=== PATIENT | female | born 1955 | race Caucasian/White ===

== ENCOUNTER 2022-02-06 08:57 | Observation (INO) ==
[2022-02-06] MEDS ORDERED: DilTIAZem 50 MG/50 ML IV.SOLN IVC SCH ×3 (09:30→11:45)
[2022-02-06 09:42] LABS: Basophils % 0.2 %; Eosinophils # 0.2 K/mcL (0.0-0.6); Eosinophils % 3.3 %; Hematocrit 44.9 % (35.3-44.9); Hemoglobin 14.7 g/dL (11.5-15.4); Immature Granulocytes % 0.3 % (0-4); Lymphocytes # 2.1 K/mcL (0.6-4.6); Lymphocytes % 31.5 %; Mean Corpuscular HGB Conc 32.7 g/dL (31.6-35.5); Mean Corpuscular Hemoglobin 33.6 pg (28.0-33.3); Mean Corpuscular Volume 102.7 fL (83.0-100.0); Mean Platelet Volume 9.9 fL (9.4-12.4); Monocytes # 0.5 K/mcL (0.0-1.3); Neutrophils # 3.8 K/mcL (1.6-8.9); Platelet Count 190 K/mcL (140-400); Red Blood Count 4.37 M/mcL (3.82-4.97); Red Cell Distribution Width 12.6 % (11.5-14.5); Segmented Neutrophils % 56.7 %; White Blood Count 6.6 K/mcL (4.3-11.1)
[2022-02-06 09:54] LABS: INR 0.9; Prothrombin Time 10.4 Seconds (9.4-12.1)
[2022-02-06 09:57] LABS: Activated Partial Thrombo Time 32.5 Seconds (26.0-36.0)
[2022-02-06 09:58] LABS: BUN/Creatinine Ratio 24 (6-26); Blood Urea Nitrogen 21 mg/dL (8-23); Calcium 9.6 mg/dL (8.6-10.3); Carbon Dioxide 30 mEq/L (23-29); Chloride 103 mEq/L (98-107); Glucose 125 mg/dL (70-105); Osmolality,Calculated 296 (280-300); Sodium 141 mEq/L (136-145); Troponin I < 0.03 ng/mL (< 0.04); eGFR For African Americans > 60 (> 60); eGFR For Non-African Americans > 60 (> 60)
[2022-02-06 10:28] LABS: Magnesium 1.8 mg/dL (1.6-2.6)
[2022-02-06 10:44] LABS: Thyroid Stimulating Hormone 5.735 mcIU/mL (0.340-5.600)
[2022-02-06] MEDS ORDERED: Melatonin 3 MG TABLET PO PRN (11:42)
[2022-02-06] MEDS ORDERED: Naloxone 0.4 MG/ML INJ IVP PRN (11:42)
[2022-02-06] MEDS ORDERED: *HR* Heparin 5,000 UNIT/ML VIAL IVP PRN ×2 (11:45)
[2022-02-06] MEDS ORDERED: *HR* Heparin 5,000 UNIT/ML VIAL IVP ONE (11:45)
[2022-02-06] MEDS ORDERED: Perflutren Lipid Microsphere 1.3 ML in 0.9 % Sodium Chloride 8.7 ML IVP PRN (12:50)
[2022-02-06] MEDS: Heparin 25,000UNIT/250ML 1/2NS 25,000 UNIT/250 ML IV.SOLN IVC SCH (13:27)
[2022-02-06 14:31] LABS: Hematocrit 41.3 % (35.3-44.9); Hemoglobin 13.3 g/dL (11.5-15.4); Mean Corpuscular HGB Conc 32.2 g/dL (31.6-35.5); Mean Corpuscular Hemoglobin 32.8 pg (28.0-33.3); Mean Corpuscular Volume 101.7 fL (83.0-100.0); Mean Platelet Volume 10.2 fL (9.4-12.4); Platelet Count 173 K/mcL (140-400); Red Blood Count 4.06 M/mcL (3.82-4.97); Red Cell Distribution Width 12.8 % (11.5-14.5); White Blood Count 6.9 K/mcL (4.3-11.1)
[2022-02-06] MEDS: DilTIAZem CD (24hr) 120 MG CAP.ER.24H PO SCH (14:34)
[2022-02-06 15:43] LABS: Magnesium 1.7 mg/dL (1.6-2.6)
[2022-02-06] MEDS ORDERED: Losartan/HCTZ 50-12.5 TABLET PO SCH (18:00)
[2022-02-06] MEDS: Metoprolol XL (24 HR) Succ 25 MG TAB.ER.24H PO SCH (20:34)
[2022-02-07 05:04] LABS: Basophils % 0.2 %; Eosinophils # 0.2 K/mcL (0.0-0.6); Eosinophils % 2.7 %; Hematocrit 38.4 % (35.3-44.9); Hemoglobin 12.6 g/dL (11.5-15.4); Immature Granulocytes % 0.2 % (0-4); Lymphocytes # 2.5 K/mcL (0.6-4.6); Lymphocytes % 41.3 %; Mean Corpuscular HGB Conc 32.8 g/dL (31.6-35.5); Mean Corpuscular Hemoglobin 33.2 pg (28.0-33.3); Mean Corpuscular Volume 101.3 fL (83.0-100.0); Mean Platelet Volume 10.1 fL (9.4-12.4); Monocytes # 0.4 K/mcL (0.0-1.3); Monocytes % 7.3 %; Neutrophils # 2.9 K/mcL (1.6-8.9); Platelet Count 151 K/mcL (140-400); Red Blood Count 3.79 M/mcL (3.82-4.97); Red Cell Distribution Width 12.8 % (11.5-14.5); Segmented Neutrophils % 48.3 %
[2022-02-07 05:18] LABS: Alanine Aminotransferase 21 Units/L (7-52); Albumin 3.7 g/dL (3.5-5.7); Albumin/Globulin Ratio 1.8 (1.1-2.2); Alkaline Phosphatase 43 Units/L (34-104); Aspartate Amino Transferase 24 Units/L (13-39); BUN/Creatinine Ratio 29 (6-26); Bilirubin,Total 0.4 mg/dL (0.3-1.0); Blood Urea Nitrogen 21 mg/dL (8-23); Carbon Dioxide 29 mEq/L (23-29); Chloride 103 mEq/L (98-107); Globulin 2.1 g/dL (2.4-3.5); Glucose 109 mg/dL (70-105); Magnesium 1.8 mg/dL (1.6-2.6); Osmolality,Calculated 294 (280-300); Potassium 3.3 mEq/L (3.5-5.1); Sodium 140 mEq/L (136-145); Total Protein 5.8 g/dL (6.4-8.9); eGFR For African Americans > 60 (> 60); eGFR For Non-African Americans > 60 (> 60)
[2022-02-07] MEDS: Metoprolol XL (24 HR) Succ 25 MG TAB.ER.24H PO SCH ×2 (06:08→20:24)
[2022-02-07] MEDS: Heparin 25,000UNIT/250ML 1/2NS 25,000 UNIT/250 ML IV.SOLN IVC SCH (06:10)
[2022-02-07] MEDS: DilTIAZem CD (24hr) 120 MG CAP.ER.24H PO SCH (08:27)
[2022-02-07] MEDS ORDERED: DilTIAZem CD (24hr) 120 MG CAP.ER.24H PO ONE (09:30)
[2022-02-07] MEDS ORDERED: Loratadine 10 MG TABLET PO PRN (13:56)
[2022-02-07] MEDS ORDERED: Venlafaxine XR (24 HR) 150 MG CAP.ER.24H PO SCH (18:00)
[2022-02-08] MEDS: Heparin 25,000UNIT/250ML 1/2NS 25,000 UNIT/250 ML IV.SOLN IVC SCH ×2 (00:40→02:56)
[2022-02-08] MEDS ORDERED: *HR* Metoprolol 5 MG/5 ML VIAL IVP ONE (02:18)
[2022-02-08 05:16] LABS: BUN/Creatinine Ratio 23 (6-26); Blood Urea Nitrogen 16 mg/dL (8-23); Calcium 8.9 mg/dL (8.6-10.3); Carbon Dioxide 27 mEq/L (23-29); Chloride 105 mEq/L (98-107); Glucose 129 mg/dL (70-105); Osmolality,Calculated 289 (280-300); Phosphorous 3.3 mg/dL (2.7-4.5); Potassium 3.7 mEq/L (3.5-5.1); Sodium 138 mEq/L (136-145); eGFR For African Americans > 60 (> 60); eGFR For Non-African Americans > 60 (> 60)
[2022-02-08 07:06] VITALS: PULSE 64
[2022-02-08] MEDS: DilTIAZem CD (24hr) 120 MG CAP.ER.24H PO SCH (08:35)
[2022-02-08] MEDS ORDERED: Fluticasone Propionate Nasal 50 MCG/SPRAY BOTTLE NS SCH (09:00)
[2022-02-08] MEDS: Metoprolol XL (24 HR) Succ 25 MG TAB.ER.24H PO SCH ×2 (11:36→12:40)
[2022-02-08 11:43] VITALS: BP 155/87; TEMP 98; O2SAT 97
[2022-02-08] MEDS ORDERED: *HR* Rivaroxaban 10 MG TABLET PO SCH (16:00)
== END 2022-02-08 17:51 | disposition home or self-care (01) ==
LOC: EMEROOARM 08:57 → 3NENU 08:57 → SUATTDRO 11:47 → 3NENU 12:45
PROVIDERS: ADMIT Internal Medicine; ATTEND Internal Medicine

== ENCOUNTER 2022-02-12 19:41 | Observation (INO) ==
[2022-02-12 20:33] LABS: Basophils % 0.1 %; Eosinophils # 0.2 K/mcL (0.0-0.6); Eosinophils % 2.5 %; Hematocrit 38.8 % (35.3-44.9); Hemoglobin 13.5 g/dL (11.5-15.4); Immature Granulocytes % 0.4 % (0-4); Lymphocytes # 2.2 K/mcL (0.6-4.6); Lymphocytes % 28.8 %; Mean Corpuscular HGB Conc 34.8 g/dL (31.6-35.5); Mean Corpuscular Volume 97.7 fL (83.0-100.0); Mean Platelet Volume 9.6 fL (9.4-12.4); Monocytes # 0.6 K/mcL (0.0-1.3); Monocytes % 7.9 %; Neutrophils # 4.5 K/mcL (1.6-8.9); Platelet Count 188 K/mcL (140-400); Red Blood Count 3.97 M/mcL (3.82-4.97); Red Cell Distribution Width 12.8 % (11.5-14.5); Segmented Neutrophils % 60.3 %; White Blood Count 7.5 K/mcL (4.3-11.1)
[2022-02-12 20:35] LABS: VBG Ionized Calcium 1.15 mmol/L (1.15-1.35)
[2022-02-12 20:57] LABS: BUN/Creatinine Ratio 20 (6-26); Blood Urea Nitrogen 24 mg/dL (8-23); Carbon Dioxide 25 mEq/L (23-29); Chloride 103 mEq/L (98-107); Glucose 147 mg/dL (70-105); Magnesium 1.6 mg/dL (1.6-2.6); Osmolality,Calculated 295 (280-300); Potassium 3.4 mEq/L (3.5-5.1); Sodium 139 mEq/L (136-145); eGFR For African Americans 55 (> 60); eGFR For Non-African Americans 45 (> 60)
[2022-02-12 20:58] LABS: Troponin I < 0.03 ng/mL (< 0.04)
[2022-02-12 21:08] LABS: Thyroid Stimulating Hormone 4.597 mcIU/mL (0.340-5.600)
[2022-02-12] MEDS: DilTIAZem 50 MG/50 ML IV.SOLN IVC SCH (22:51)
[2022-02-12] MEDS ORDERED: Melatonin 3 MG TABLET PO PRN (23:44)
[2022-02-12] MEDS ORDERED: Ondansetron 4 MG/2 ML VIAL IVP PRN (23:44)
[2022-02-12] MEDS ORDERED: Acetaminophen 325 MG TABLET PO PRN (23:44)
[2022-02-12] MEDS ORDERED: Naloxone 0.4 MG/ML INJ IVP PRN (23:44)
[2022-02-12] MEDS ORDERED: Magnesium Sulfate 1 GM/102 ML PIGGYBACK IVPB ONE (23:45)
[2022-02-13 00:15] VITALS: TEMP 98; O2SAT 97
[2022-02-13 01:03] LABS: Basophils % 0.2 %; Eosinophils # 0.2 K/mcL (0.0-0.6); Eosinophils % 2.3 %; Hematocrit 43.6 % (35.3-44.9); Hemoglobin 14.3 g/dL (11.5-15.4); Immature Granulocytes % 0.4 % (0-4); Lymphocytes # 3.4 K/mcL (0.6-4.6); Mean Corpuscular HGB Conc 32.8 g/dL (31.6-35.5); Mean Corpuscular Hemoglobin 33.1 pg (28.0-33.3); Mean Corpuscular Volume 100.9 fL (83.0-100.0); Mean Platelet Volume 9.8 fL (9.4-12.4); Monocytes # 0.9 K/mcL (0.0-1.3); Monocytes % 9.4 %; Neutrophils # 4.8 K/mcL (1.6-8.9); Platelet Count 215 K/mcL (140-400); Red Blood Count 4.32 M/mcL (3.82-4.97); Red Cell Distribution Width 12.7 % (11.5-14.5); Segmented Neutrophils % 51.7 %; White Blood Count 9.3 K/mcL (4.3-11.1)
[2022-02-13 01:19] LABS: BUN/Creatinine Ratio 24 (6-26); Blood Urea Nitrogen 26 mg/dL (8-23); Calcium 9.6 mg/dL (8.6-10.3); Carbon Dioxide 30 mEq/L (23-29); Chloride 102 mEq/L (98-107); Glucose 94 mg/dL (70-105); Magnesium 1.7 mg/dL (1.6-2.6); Osmolality,Calculated 295 (280-300); Potassium 3.4 mEq/L (3.5-5.1); Sodium 140 mEq/L (136-145); eGFR For African Americans > 60 (> 60); eGFR For Non-African Americans 51 (> 60)
[2022-02-13] MEDS: DilTIAZem 50 MG/50 ML IV.SOLN IVC SCH (06:21)
[2022-02-13 07:24] VITALS: BP 136/73; PULSE 63
[2022-02-13] MEDS ORDERED: *HR* Rivaroxaban 10 MG TABLET PO SCH (09:00)
[2022-02-13] MEDS ORDERED: DilTIAZem CD (24hr) 180 MG CAP.ER.24H PO SCH (09:00)
[2022-02-13] MEDS ORDERED: Metoprolol XL (24 HR) Succ 25 MG TAB.ER.24H PO SCH ×2 (09:00)
== END 2022-02-13 11:30 | disposition home or self-care (01) ==
LOC: EMEROOARM 19:41 → 3NENU 19:41 → SUATTDRO 23:06 → 3NENU 23:40
PROVIDERS: ADMIT Internal Medicine; ATTEND Internal Medicine